=== PATIENT | male | born 1955 | race African-American/Black ===

== ENCOUNTER 2018-01-06 07:00 | Day surgery (SDC) | payer OTHER ==
[~2018-01-06] VITALS: Ht 185.4 cm; Wt 95.3 kg
[2018-01-06] VITALS (9 sets, daily range): BP systolic 116–153; BP diastolic 66–83
[~2018-01-06 07:00] MED LIST: ceFAZolin 1gm in D5W 55ml IVP ONE; celeBREX 200mg Cap **SURGERY PATIENTS ONLY ORAL ONE; oxyCONTIN 20mg tab ORAL ONE
[2018-01-06] MEDS ORDERED: POTASSIUM GLUCO2 MEQ PO (08:02)
[2018-01-06] MEDS ORDERED: GLYXAMBI 10 MG1 EACH PO (08:03)
[2018-01-06] MEDS ORDERED: METFORMIN HYD1000 GM MC (08:13)
[2018-01-06] MEDS ORDERED: GABAPENTIN100 MG ORAL (08:13)
[2018-01-06] MEDS ORDERED: ATORVASTATIN CA40 MG ORAL (08:14)
[2018-01-06] MEDS ORDERED: [UNRECOGNIZED DRUG - OTHER] PO (08:16)
[2018-01-06] MEDS ORDERED: celeBREX 200mg Cap **SURGERY PATIENTS ONLY ORAL ONE (09:04)
[2018-01-06] MEDS ORDERED: oxyCONTIN 20mg tab ORAL ONE (09:04)
[2018-01-06] MEDS ORDERED: Midazolam 2mg/2ml Inj ONE (09:20)
[2018-01-06] MEDS ORDERED: Propofol 200mg/20ml IV ONE ×2 (09:20→10:49)
[2018-01-06] MEDS ORDERED: fentaNYL 100 mcg/2 mL IV ONE (09:20)
[2018-01-06] MEDS ORDERED: Lidocaine 1% MPF 10mg/ml 5ml ONE (09:20)
[2018-01-06] MEDS ORDERED: Bupivacaine 0.25% Inj 30ml INJ ONE (09:46)
[2018-01-06] MEDS ORDERED: EPINEPHrine 1mg/1ml Amp ONE (09:46)
[2018-01-06] MEDS ORDERED: Succinylcholine 20mg/ml 10ml vial ONE (09:53)
[2018-01-06] MEDS ORDERED: Zemuron 50mg/5ml Inj IV ONE (09:53)
[2018-01-06] MEDS ORDERED: Ropivacaine 5mg/ml Vial 30ml INJ ONE (09:57)
[2018-01-06] MEDS ORDERED: NS Irrig 4000ml IRRIG ONE (11:00)
[2018-01-06] MEDS ORDERED: LR 1000ml ONE (11:00)
[2018-01-06] MEDS ORDERED: Neostigmine 1mg/ml 10ml Inj ONE (11:00)
[2018-01-06] MEDS ORDERED: Morphine Sulfate 10mg/ml Inj ONE (11:30)
[2018-01-06] MEDS ORDERED: Sodium Chloride 10ml vial INJ ONE (11:31)
[2018-01-06] MEDS ORDERED: Glycopyrrolate 0.2mg/ml 1ml Vial ONE (11:34)
[2018-01-06] MEDS ORDERED: Ketorolac 30mg Inj ONE (11:35)
[2018-01-06] MEDS ORDERED: LR 1000ml 1,000 ML IVLG SCH (11:42)
--- NOTE | 2018-01-06 11:42 | Anethesia Preoperative Eval ---
Anesthesia Pre-op PMH/ROS General Date of Evaluation: Jan 06, 2018 Time of Evaluation: 10:25 Anesthesiologist: Chandana ASA Score: ASA 2 Mallampati Score Class I : Soft palate, uvula, fauces, pillars visible Class II: Soft palate, uvula, fauces visible Class III: Soft palate, base of uvula visible Class IV: Only hard plate visible Mallampati Classification: Class II Surgeon: Clayton Diagnosis: R shoulder pain Surgical Procedure: R shoulder scope Anesthesia History: none Family History: no anesthesia problems Allergies: Coded Allergies: No Known Allergies (Unverified , 01/05/18) Medications: see eMAR Past Medical History Cardiovascular: Denies: HTN, CAD, MA, valve dz, arrhythmia, other Pulmonary: Denies: asthma, COPD, CAROLYN, other Gastrointestinal/Genitourinary: Reports: GERD Neurologic/Psychiatric: Denies: dementia, CVA, depression/anxiety, TIA, other Endocrine: Reports: DM - on pills well controlled; Denies: hypothyroidism, steroids, other HEENT: Denies: cataract (L), cataract (R), glaucoma, [place] (L), [place] (R), other Hematology/Immune: Denies: anemia, DVT, bleeding disorder, other Musculoskeletal/Integumentary: Denies: OA, RA, DJD, DDD, edema, other PMH Narrative: as above PSxH Narrative: Hernia repair Anesthesia Pre-op Phys. Exam Physician Exam Last Vital Signs Date Time Temp Pulse Resp B/P (MAP) Pulse Ox O2 Delivery O2 Flow Rate FiO2 01/06/18 07:53 Room Air 01/06/18 07:50 98.3 70 18 116/80 (92) 98 98.3 Constitutional: NAD Neurologic: CN 2-12 intact Cardiovascular: RRR, no M/R/G Respiratory: CTA Gastrointestinal: S/NT/ND Airway Exam Mallampati Score: Class II MO: full Neck: flexible ROM: full Teeth: intact Dentures: no upper, no lower Anesthesia Pre-op A/P Labs see chart Accucheck 101 at admission Studies Pre-op Studies: EKG - NSR Risk Assessment & Plan Assessment: ASA 2 Plan: GA with ETT R brachial plexus block for postoperative pain control Status Change Before Surgery: No Pre-Antibiotics Drug: Ancef 2gr. Given Within 1 Hr of Incision: Yes Time Given: 11:20 Antoine Ellington MD Jan 06, 2018 11:42
[2018-01-06] MEDS ORDERED: fentaNYL 100 mcg/2 mL IV PRN (11:45)
[2018-01-06] MEDS ORDERED: Ketorolac 30mg Inj IV PRN (11:45)
[2018-01-06] MEDS ORDERED: DiphenhydrAMINE 50mg/ml Inj IVP PRN (11:45)
[2018-01-06] MEDS ORDERED: Meperidine 50mg/ml Inj(FOR RIGORS ONLY) IV PRN (11:45)
[2018-01-06] MEDS ORDERED: Midazolam 2mg/2ml Inj IVP PRN (11:45)
--- NOTE | 2018-01-06 11:55 | Pre-Procedure Note/Attestation ---
Pre-Procedure Note/Attestation Complete Prior to Procedure Planned Procedure: right Procedure Narrative: shoulder artrhscopy, possible labral repair, possible rct repair, sad Indications for Procedure Pre-Operative Diagnosis: right shoulder sad, possible labral/rc tear Attestation I attest that I discussed the nature of the procedure; its benefits; risks and complications; and alternatives (and the risks and benefits of such alternatives ), prior to the procedure, with the patient (or the patient's legal education courses sales representative). I attest that, if there was a reasonable possibility of needing a blood transfusion, the patient (or the patient's legal education courses sales representative) was given the [facility] standardized written summary, pursuant to the [place] Blood Safety Act ([place] Health and Safety Code # 1645, as amended). I attest that I re-evaluated the patient just prior to the surgery and that there has been no change in the patient's H&P, except as documented below: Edgard Arnold MD Jan 06, 2018 11:55
--- NOTE | 2018-01-06 11:56 | Operative Note - PDOC ---
Operative Note Operative Note Pre-op Diagnosis: right shoulder sad, possible labral/rc tear Procedure: see op report Post-op Diagnosis: same as pre-op plus Operative Findings: consistent w/pre-op dx studies Anesthesia: regional Specimen: none Complications: none Condition: stable Estimated Blood Loss: none Implant(s) used?: No Edgard Arnold MD Jan 06, 2018 11:56
[2018-01-06] MEDS ORDERED: Norco 5mg/325mg tab ORAL PRN (12:00)
[2018-01-06] MEDS ORDERED: D5 1/2NS 1,000 ML IV SCH (12:00)
[2018-01-06] MEDS ORDERED: Tylenol #3 tab (300mg/30mg) ORAL PRN (12:00)
[2018-01-06] MEDS ORDERED: HYDROmorphone 1mg/ml Carpuject SUBQ PRN (12:00)
--- NOTE | 2018-01-06 12:19 | Immediate Post-Op Evaluation ---
Immediate Post-Op Evalulation Immediate Post-Op Evalulation Procedure: R shoulder arthroscopy, subacromion decompression Date of Evaluation: Jan 06, 2018 Time of Evaluation: 12:18 IV Fluids: 1000 Blood Products: none Estimated Blood Loss: min Urinary Output: none` Blood Pressure Systolic: 128 Blood Pressure Diastolic: 69 Pulse Rate: 74 Respiratory Rate: 20 O2 Sat by Pulse Oximetry: 99 Temperature (Fahrenheit): 97.8 Pain Score (1-10): 1 Nausea: No Vomiting: No Complications none Patient Status: reacts, patent, extubated, none Hydration Status: adequate Antoine Ellington MD Jan 06, 2018 12:19
--- NOTE | 2018-01-06 19:15 | Operative Note - Dictated ---
DATE OF OPERATION: 01/06/2018 PREOPERATIVE DIAGNOSES: 1. Left shoulder rotator cuff tear. 2. Right shoulder impingement syndrome. POSTOPERATIVE DIAGNOSES: 1. Grade 1 superior labral tear. 2. Impingement syndrome. 3. Acromioclavicular joint arthropathy. PROCEDURES: 1. Right shoulder arthroscopy with extensive debridement. 2. Right shoulder SLAP tear debridement/repair. 3. Right shoulder subacromial decompression with bursectomy. 4. Right shoulder AC joint coplaning. SURGEON: Edgard Arnold M.D. ANESTHESIA: Interscalene with general. INDICATION FOR PROCEDURE: The patient is a pleasant gentleman, who has had progressive right shoulder pain. He had an MRI, which showed a tear of the supraspinatus, also tenosynovitis of the biceps tendon, possible internal derangement of the labrum with subdeltoid bursitis. The patient elected to undergo right shoulder arthroscopy and possible debridement versus repair of labral tear with concurrent subacromial decompression bursectomy at the time of surgery. The rotator cuff operative fixation in the form of a formal fixation would also be necessary. Risks, limitations, expectations, and complications of the procedure were discussed in detail. All questions addressed. DESCRIPTION OF PROCEDURE: After informed consent was obtained, the patient was brought to the operating room and placed the patient under interscalene general anesthesia. The patient was then carefully placed in the beach-chair position. Right shoulder was prepped and draped in a sterile manner. Time-out was performed. Portal sites were injected with 0.25% Marcaine with epinephrine. Inferolateral stab incision was then made. Trocar was introduced into the glenohumeral joint. Of note, there was significant tear of the anterior labrum extending superiorly. Working portal was established with debridement of the anterior and superior labral tearing was performed. The superior labrum was probed. It was not unstable. Biceps tendon appeared to be intact. No evidence of erythema. Undersurface of the articular side of the rotator cuff was intact. At this point, the camera was placed in the subacromial space. There was significant hypertrophic bursal tissue. This was debrided to better visualize the anterior aspect of the acromion. Lateral working portal was established. Acromioplasty was started from lateral to medial and completed from posterior to anterior. At this point, a complete bursectomy was performed all the way to the posterior axillary block was performed. The bursal side of the rotator cuff appeared to be intact. At this point, the AC joint coplaning was performed. Once that was completed, the instruments were removed. Portal sites were closed with 3-0 Monocryl sutures. Steri-Strips and a sterile dressing were applied. The patient was awoken and taken to recovery room with stable vital signs. ESTIMATED BLOOD LOSS: None. COMPLICATIONS: None. SPECIMENS: None. IMPLANTS: None. Edgard Arnold M.D. DR: CODY JOB#: [id number] CC:
== END 2018-01-06 13:40 | disposition home or self-care (01) ==
LOC: SUR 07:00
DX: S43.431A Superior glenoid labrum lesion of right shoulder, initial encounter (principal); M75.41 Impingement syndrome of right shoulder; M12.811 Other specific arthropathies, not elsewhere classified, right shoulder; E11.9 Type 2 diabetes mellitus without complications; Z79.84 Long term (current) use of oral hypoglycemic drugs; E78.5 Hyperlipidemia, unspecified; K21.9 Gastro-esophageal reflux disease without esophagitis
CPT/HCPCS: 29807; 82962; J0171; J0330; J0690; J1885; J2250; J2270; J2704; J2710; J2795; J3010; J3490; J7120; 94003; 94150